=== PATIENT | female | born 1995 | race Caucasian/White ===

== ENCOUNTER 2016-11-13 21:02 | Emergency (ER) | payer OTHER ==
[2016-11-13] MEDS ORDERED: diphenhydrAMINE 50 MG CAP PO STA (21:25)
[2016-11-13] MEDS ORDERED: DOXYCYCLINE 50 MG CAP PO STA (21:29)
--- NOTE | 2016-11-13 21:34 | ED ---
Allergic Reaction HPI - General Chief complaint: Allergic Reaction Stated complaint: allergic reaction to cat Time Seen by Provider: 11/13/16 21:21 Source: patient, family Mode of arrival: ambulatory Limitations: no limitations - History of Present Illness Initial Comments: Patient complains of an ALLERGIC reaction. She was exposed to a cat. She is ALLERGIC to cats. Patient also has a scratch in her right hand. She has no fever, chills, chest pain. She has no belly pain. She has no lightheadedness or dizziness. She has no nausea or vomiting. She has taken no medication for her symptoms. - Related Data Previous Rx's Medication Instructions Recorded Doxycycline Hyclate [Vibramycin] 100 mg PO BID #20 cap 11/13/16 Allergies Allergy/AdvReac Type Severity Reaction Status Date / Time cat dander Allergy Dyspnea Verified 11/13/16 21:22 morphine Allergy Anaphylaxis Verified 11/13/16 21:22 Penicillins Allergy Rash/Hives Verified 11/13/16 21:22 Review of Systems ROS Statement: Those systems with pertinent positive or pertinent negative responses have been documented in the HPI. ROS Other: All systems not noted in ROS Statement are negative. Past Medical History Past Medical History: GERD/Reflux Additional Past Medical History / Comment(s): migraines History of Any Multi-Drug Resistant Organisms: MRSA Date of last positivie culture/infection: 2013 MDRO Source:: left leg Past Surgical History: Adenoidectomy, Tonsillectomy Past Psychological History: No Psychological Hx Reported Smoking Status: Former smoker Past Alcohol Use History: None Reported Past Drug Use History: None Reported General Exam Limitations: no limitations General appearance: alert, in no apparent distress Head exam: Present: atraumatic, normocephalic, normal inspection Eye exam: Present: normal appearance, PERRL, EOMI. Absent: scleral icterus, conjunctival injection, periorbital swelling ENT exam: Present: normal exam, mucous membranes moist Neck exam: Present: normal inspection. Absent: tenderness, meningismus, lymphadenopathy Respiratory exam: Present: normal lung sounds bilaterally. Absent: respiratory distress, wheezes, rales, rhonchi, stridor Cardiovascular Exam: Present: regular rate, normal rhythm, normal heart sounds. Absent: systolic murmur, diastolic murmur, rubs, gallop, clicks GI/Abdominal exam: Present: soft, normal bowel sounds. Absent: distended, tenderness, guarding, rebound, rigid Extremities exam: Present: normal inspection, full ROM, normal capillary refill. Absent: tenderness, pedal edema, joint swelling, calf tenderness Back exam: Present: normal inspection Neurological exam: Present: alert, oriented X3, CN II-XII intact Psychiatric exam: Present: normal affect, normal mood Skin exam: Present: warm, dry, intact, normal color, other (Scratches on the right hand). Absent: rash Course Vital Signs 11/13/16 21:11 Temperature 98 F Pulse Rate 86 Respiratory 20 Rate Blood Pressure 125/75 O2 Sat by Pulse 99 Oximetry Medical Decision Making - Medical Decision Making Patient presents with possible ALLERGIC reaction. I gave her Benadryl by mouth. I gave her 100 mg doxycycline by mouth in the cat scratch. I updated her tetanus immunization. She is feeling better and is stable for discharge. Disposition Clinical Impression: Allergic reaction Disposition: HOME SELF-CARE Condition: Good Instructions: Allergies (ED) Prescriptions: Doxycycline Hyclate [Vibramycin] 100 mg PO BID #20 cap Time of Disposition: 21:33
[2016-11-13 22:35] VITALS: BP 134/74; PULSE 89; RESP 18; TEMP 98.6
== END 2016-11-13 22:35 | disposition home or self-care (01) ==
LOC: EC 21:02
DX: J30.81 Allergic rhinitis due to animal (cat) (dog) hair and dander (principal); S60.511A Abrasion of right hand, initial encounter; X58.XXXA Exposure to other specified factors, initial encounter; Z88.5 Allergy status to narcotic agent; Z88.0 Allergy status to penicillin; Z91.09 Other allergy status, other than to drugs and biological substances; Z86.14 Personal history of Methicillin resistant Staphylococcus aureus infection; Z87.891 Personal history of nicotine dependence
CPT/HCPCS: 99283

== ENCOUNTER 2018-07-14 22:51 | Emergency (ER) | payer OTHER ==
[2018-07-14] MEDS ORDERED: KETOROLAC 30 MG/ML 1 ML VIAL IVP STA (23:34)
[2018-07-14] MEDS ORDERED: ONDANSETRON 4 MG/2 ML VIAL IVP STA (23:34)
[2018-07-14] MEDS ORDERED: SODIUM CHLORIDE 0.9% 1,000 ML IV STA (23:34)
--- NOTE | 2018-07-14 23:36 | ED ---
Abdominal Pain HPI - General Chief Complaint: Abdominal Pain Stated Complaint: Abdominal Pain Time Seen by Provider: 07/14/18 23:23 Source: patient, RN notes reviewed Mode of arrival: ambulatory Limitations: no limitations - History of Present Illness Initial Comments: This is a 22-year-old female who presents to the emergency department with chief complaint of abdominal and right flank pain. Patient reports acute onset of right upper quadrant abdominal pain yesterday. She states that she gave the pain is now in her right flank. She states that the pain is throbbing and sharp. She states that intensity increases in waves. She states that prior to arrival she began having nausea and vomiting. Reports chills. Denies fevers. Denies diarrhea. Denies dysuria, hematuria or increased urinary frequency. States the only medication she takes are for ALLERGIES and oral control. - Related Data Home Medications Medication Instructions Recorded Confirmed Loratadine [Claritin] 10 mg PO DAILY PRN 07/14/18 07/14/18 Previfem 1 tab PO DAILY 07/14/18 07/14/18 Previous Rx's Medication Instructions Recorded Levofloxacin [Levaquin] 750 mg PO DAILY 7 Days #7 tab 07/15/18 Allergies Allergy/AdvReac Type Severity Reaction Status Date / Time cat dander Allergy Dyspnea Verified 07/14/18 23:32 morphine Allergy Anaphylaxis Verified 07/14/18 23:32 Penicillins Allergy Rash/Hives Verified 07/14/18 23:32 Review of Systems ROS Statement: Those systems with pertinent positive or pertinent negative responses have been documented in the HPI. ROS Other: All systems not noted in ROS Statement are negative. Past Medical History Past Medical History: GERD/Reflux Additional Past Medical History / Comment(s): migraines History of Any Multi-Drug Resistant Organisms: MRSA Date of last positivie culture/infection: 2013 MDRO Source:: left leg Past Surgical History: Adenoidectomy, Tonsillectomy Past Psychological History: No Psychological Hx Reported Smoking Status: Former smoker Past Alcohol Use History: None Reported Past Drug Use History: None Reported General Exam - General Exam Comments Initial Comments: General: Awake and alert, well-developed; in mild distress due to pain. HEENT: Head atraumatic, normocephalic. Pupils are equal, round and reactive to light. Extraocular movements intact. Oropharynx moist without erythema or exudate. Neck: Supple. Normal ROM. Cardiovascular: Regular rate and rhythm. No murmurs, rubs or gallops. Chest symmetrical. Respiratory: Lungs clear to auscultation bilaterally. No wheezes, rales or rhonchi. Normal respiratory effort with no use of accessory muscles. Abdomen: Soft, non-tender, non-distended. No rigidity, rebound or guarding. Normal bowel sounds in all 4 quadrants. Right CVA tenderness. Musculoskeletal: Normal ROM, no tenderness bilateral upper and lower extremities. Ambulating normally. Skin: [place], warm and dry without rashes or lesions. Neurological: Alert and oriented x3. CN II-XII grossly intact. Speech is fluent and answers are appropriate. No focal neuro deficits. Psychiatric: Normal mood and affect. No overt signs of depression or anxiety noted. Limitations: no limitations Course Vital Signs 07/14/18 23:15 Temperature 99.2 F Pulse Rate 101 H Respiratory 20 Rate Blood Pressure 143/87 O2 Sat by Pulse 96 Oximetry Medical Decision Making - Medical Decision Making This is a 22-year-old female who presents to the emergency department with chief complaint of right flank pain. Patient also reports chills, nausea and vomiting. On physical examination, there is right CVA tenderness. Abdomen is soft and non-tender. CBC does reveal a slightly elevated white count at 13.2 with a left shift. CMP reveals normal kidney function. UA is positive for infection with positive nitrites, bacteria, leukocyte esterase and white blood cells. Patient is tolerating oral intake. She is eating crackers and peanut butter as well as drinking water. Patient given a dose of Rocephin here in the emergency department for treatment of pyelonephritis. She will be discharged home with a prescription for Levaquin and will be provided with a starter pack for Zofran. Instructed patient to make sure she urinates after sexual intercourse and to finish the antibiotic fully. Vitals are stable and patient is in no acute distress. She will be discharged with this time. She is in agreement with plan and voices understanding. All questions were answered. - Lab Data Result diagrams: 07/14/18 23:52 07/14/18 23:52 Lab Results 07/14/18 07/14/18 07/14/18 Range/Units 23:45 23:45 23:52 WBC (3.8-10.6) k/uL RBC (3.80-5.40) m/uL Hgb (11.4-16.0) gm/dL Hct (34.0-46.0) % MCV (80.0-100.0) fL MCH (25.0-35.0) pg MCHC (31.0-37.0) g/dL RDW (11.5-15.5) % Plt Count (150-450) k/uL Neutrophils % % Lymphocytes % % Monocytes % % Eosinophils % % Basophils % % Neutrophils # (1.3-7.7) k/uL Lymphocytes # (1.0-4.8) k/uL Monocytes # (0-1.0) k/uL Eosinophils # (0-0.7) k/uL Basophils # (0-0.2) k/uL Sodium 140 (137-145) mmol/L Potassium 4.7 (3.5-5.1) mmol/L Chloride 102 (98-107) mmol/L Carbon Dioxide 26 (22-30) mmol/L Anion Gap 12 mmol/L BUN 14 (7-17) mg/dL Creatinine 0.82 (0.52-1.04) mg/dL Est GFR (CKD-EPI)AfAm >90 (>60 ml/min/1.73 sqM) Est GFR (CKD-EPI)NonAf >90 (>60 ml/min/1.73 sqM) Glucose 107 H (74-99) mg/dL Calcium 10.3 H (8.4-10.2) mg/dL Total Bilirubin 0.3 (0.2-1.3) mg/dL AST 29 (14-36) U/L ALT 38 (9-52) U/L Alkaline Phosphatase 84 (38-126) U/L Total Protein 8.3 H (6.3-8.2) g/dL Albumin 4.5 (3.5-5.0) g/dL Amylase 61 (30-110) U/L Lipase 60 (23-300) U/L Urine Color Yellow Urine Appearance Cloudy H (Clear) Urine pH 6.0 (5.0-8.0) Ur Specific [place] 1.023 (1.001-1.035) Urine Protein 2+ H (Negative) Urine Glucose (UA) Negative (Negative) Urine Ketones Negative (Negative) Urine Blood Trace H (Negative) Urine Nitrite Positive H (Negative) Urine Bilirubin Negative (Negative) Urine Urobilinogen 2.0 (<2.0) mg/dL Ur Leukocyte Esterase Large H (Negative) Urine RBC 6 H (0-5) /hpf Urine WBC 170 H (0-5) /hpf Ur Squamous Epith Cells 2 (0-4) /hpf Urine Bacteria Few H (None) /hpf Urine Mucus Few H (None) /hpf Urine HCG, Qual Not Detected (Not Detectd) 07/14/18 Range/Units 23:52 WBC 13.2 H (3.8-10.6) k/uL RBC 4.80 (3.80-5.40) m/uL Hgb 13.9 (11.4-16.0) gm/dL Hct 40.8 (34.0-46.0) % MCV 85.0 (80.0-100.0) fL MCH 29.0 (25.0-35.0) pg MCHC 34.1 (31.0-37.0) g/dL RDW 13.6 (11.5-15.5) % Plt Count 268 (150-450) k/uL Neutrophils % 67 % Lymphocytes % 20 % Monocytes % 4 % Eosinophils % 7 % Basophils % 1 % Neutrophils # 8.9 H (1.3-7.7) k/uL Lymphocytes # 2.7 (1.0-4.8) k/uL Monocytes # 0.6 (0-1.0) k/uL Eosinophils # 0.9 H (0-0.7) k/uL Basophils # 0.1 (0-0.2) k/uL Sodium (137-145) mmol/L Potassium (3.5-5.1) mmol/L Chloride (98-107) mmol/L Carbon Dioxide (22-30) mmol/L Anion Gap mmol/L BUN (7-17) mg/dL Creatinine (0.52-1.04) mg/dL Est GFR (CKD-EPI)AfAm (>60 ml/min/1.73 sqM) Est GFR (CKD-EPI)NonAf (>60 ml/min/1.73 sqM) Glucose (74-99) mg/dL Calcium (8.4-10.2) mg/dL Total Bilirubin (0.2-1.3) mg/dL AST (14-36) U/L ALT (9-52) U/L Alkaline Phosphatase (38-126) U/L Total Protein (6.3-8.2) g/dL Albumin (3.5-5.0) g/dL Amylase (30-110) U/L Lipase (23-300) U/L Urine Color Urine Appearance (Clear) Urine pH (5.0-8.0) Ur Specific [place] (1.001-1.035) Urine Protein (Negative) Urine Glucose (UA) (Negative) Urine Ketones (Negative) Urine Blood (Negative) Urine Nitrite (Negative) Urine Bilirubin (Negative) Urine Urobilinogen (<2.0) mg/dL Ur Leukocyte Esterase (Negative) Urine RBC (0-5) /hpf Urine WBC (0-5) /hpf Ur Squamous Epith Cells (0-4) /hpf Urine Bacteria (None) /hpf Urine Mucus (None) /hpf Urine HCG, Qual (Not Detectd) Disposition Clinical Impression: Pyelonephritis Disposition: HOME SELF-CARE Condition: Good Instructions: Urinary Tract Infection in Women (ED), Kidney Infection (ED), Ondansetron (By mouth) Additional Instructions: Please take medications as prescribed. Please follow up with primary care provider within 1-2 days. Return to emergency department if symptoms should worsen or any concerns arise. Prescriptions: Levofloxacin [Levaquin] 750 mg PO DAILY 7 Days #7 tab Is patient prescribed a controlled substance at d/c from ED?: No Referrals: Leanne Villanueva MD [Primary Care Provider] - 1-2 days Time of Disposition: 00:49
[2018-07-15 00:10] LABS: Basophils # (A) 0.1 k/uL (0-0.2); Basophils % (A) 1 %; Eosinophils # (A) 0.9 k/uL (0-0.7); Eosinophils % (A) 7 %; HCT 40.8 % (34.0-46.0); HGB 13.9 gm/dL (11.4-16.0); Lymphocytes # (A) 2.7 k/uL (1.0-4.8); Lymphocytes % (A) 20 %; MCHC 34.1 g/dL (31.0-37.0); Mean Platelet Volume 7.2; Monocytes # (A) 0.6 k/uL (0-1.0); Monocytes % (A) 4 %; Neutrophils # (A) 8.9 k/uL (1.3-7.7); Neutrophils % (A) 67 %; Platelet Count 268 k/uL (150-450); RDW 13.6 % (11.5-15.5); WBC 13.2 k/uL (3.8-10.6)
[2018-07-15 00:15] LABS: Appearance,Urine Cloudy (Clear); Bacteria,Urine Few /hpf; Bilirubin,Urine Negative (Negative); Blood,Urine Trace (Negative); Color,Urine Yellow; Glucose,Urine (UA) Negative (Negative); Ketones,Urine Negative (Negative); Leukocyte Esterase,Urine Large (Negative); Mucus,Urine Few /hpf; Nitrite,Urine Positive (Negative); Protein,Urine 2+ (Negative); RBC,Urine 6 /hpf (0-5); Specific Gravity,Urine 1.023 (1.001-1.035); Squamous Epithelial Cell,Urine 2 /hpf (0-4); WBC,Urine 170 /hpf (0-5)
[2018-07-15 00:34] LABS: ALT 38 U/L (9-52); AST 29 U/L (14-36); Albumin 4.5 g/dL (3.5-5.0); Alkaline Phosphatase 84 U/L (38-126); Amylase 61 U/L (30-110); Anion Gap 12 mmol/L; Blood Urea Nitrogen 14 mg/dL (7-17); Calcium 10.3 mg/dL (8.4-10.2); Carbon Dioxide 26 mmol/L (22-30); Chloride 102 mmol/L (98-107); Glucose 107 mg/dL (74-99); Lipase 60 U/L (23-300); Potassium 4.7 mmol/L (3.5-5.1); Sodium 140 mmol/L (137-145); Total Bilirubin 0.3 mg/dL (0.2-1.3); Total Protein 8.3 g/dL (6.3-8.2)
--- NOTE | 2018-07-15 00:39 | XR ---
EXAMINATION TYPE: XR KUB DATE OF EXAM: 07/15/2018 COMPARISON: NONE HISTORY: Flank pain TECHNIQUE: 2 views upright FINDINGS: Bowel gas pattern is normal. There is no sign of intestinal obstruction or pneumoperitoneum . Fecal pattern is normal. There is no evidence of a mass. There are no pathologic calcifications ove r the kidneys. Bony structures are intact. Lung bases are clear. IMPRESSION: Nonacute abdomen.
[2018-07-15] MEDS ORDERED: ONDANSETRON 4 MG ODT STARTER PACK 2 TAB BTL PO STA (00:48)
[2018-07-15 01:25] VITALS: BP 115/80; PULSE 69; RESP 18; TEMP 97.9
== END 2018-07-15 01:25 | disposition home or self-care (01) ==
LOC: EC 22:51
DX: N12 Tubulo-interstitial nephritis, not specified as acute or chronic (principal); Z86.14 Personal history of Methicillin resistant Staphylococcus aureus infection; Z87.891 Personal history of nicotine dependence; Z79.3 Long term (current) use of hormonal contraceptives; Z88.0 Allergy status to penicillin; Z88.5 Allergy status to narcotic agent; Z91.09 Other allergy status, other than to drugs and biological substances
CPT/HCPCS: 36415; 80053; 82150; 83690; 85025; 81001; 81025; 74018; 99284; 96365; 96375 ×2; 96361; J2405; J0696; J1885; S0119

== ENCOUNTER → 2019-10-06 | Day surgery (SDC) | payer OTHER ==
[2019-10-04 09:07] VITALS: BMI 30.5
[~2019-10-06] MED LIST: SODIUM CHLORIDE 0.9% 1,000 ML IV SCH
[2019-10-06 08:48] VITALS: BP 119/71; PULSE 82; RESP 16; TEMP 98.4
--- NOTE | 2019-10-06 18:03 | P.PCN ---
Preoperative Diagnosis: Diagnosis Recurrent syncope and presyncope Twelve-lead ECG shows sinus mechanism normal MI narrow QRS normal ST segments Tilt table test protocol Baseline blood pressure 100 906 2 mmHg Baseline heart rate 84 beats a minute with palpation was tilted upright at an angle of 70 per protocol Within 6 minutes the patient experiences sudden drop in blood pressure to 55 mmHg. This is preceded by sinus tachycardia per 116 beats a minute She became presyncopal and when she was laid flat her blood pressure normalized and heart rate normalized Impression Patient with recurrent presyncope Neurocardiogenic response to upright tilting Normal twelve-lead ECG
== END ==
LOC: CATHEP 08:20
PROVIDERS: ATTEND Internal Medicine Clinical Cardiac Electrophysiology
DX: R55 Syncope and collapse (principal); R42 Dizziness and giddiness; R00.2 Palpitations; E03.9 Hypothyroidism, unspecified; Z88.0 Allergy status to penicillin; Z88.5 Allergy status to narcotic agent; Z79.3 Long term (current) use of hormonal contraceptives; Z79.890 Hormone replacement therapy; Z79.899 Other long term (current) drug therapy; Z72.0 Tobacco use
CPT/HCPCS: 81025; 93660

== ENCOUNTER 2020-03-23 09:58 | Emergency (ER) | payer OTHER ==
[2020-03-23 10:06] VITALS: BP 131/84; PULSE 93; RESP 18; TEMP 98.1
--- NOTE | 2020-03-23 10:32 | ED ---
ENT HPI - General Chief complaint: ENT Stated complaint: ear problem Time Seen by Provider: 03/23/20 10:08 Source: patient, RN notes reviewed, old records reviewed Mode of arrival: ambulatory Limitations: no limitations - History of Present Illness Initial comments: Patient is a 24-year-old female who presents emergency Department today with complaints of a piece of hair within the right ear canal. She reports that she has had this for months after she cut her hair. She called her PCP to get down they would not help her and sent her here. Patient denies any drainage or swelling in the ear. He tried to flush it and get it out with Q-tips was unsuccessful. - Related Data Home Medications Medication Instructions Recorded Confirmed Loratadine [Claritin] 10 mg PO DAILY PRN 07/14/18 10/06/19 Levothyroxine Sodium [Synthroid] 25 mcg PO DAILY 10/04/19 10/06/19 Medroxyprogesterone Acetate 150 mg IM Q90D 10/04/19 10/06/19 [Depo-Provera] Previous Rx's Medication Instructions Recorded Ofloxacin 0.3% Ophth Soln [Ocuflox 5 drops RIGHT EAR BID #1 bottle 03/23/20 Ophth Soln] Allergies Allergy/AdvReac Type Severity Reaction Status Date / Time cat dander Allergy Dyspnea Verified 03/23/20 10:06 Egg Derived Allergy "passes Verified 03/23/20 10:06 out" morphine Allergy Anaphylaxis Verified 03/23/20 10:06 Penicillins Allergy Rash/Hives Verified 03/23/20 10:06 Review of Systems ROS Statement: Those systems with pertinent positive or pertinent negative responses have been documented in the HPI. ROS Other: All systems not noted in ROS Statement are negative. Past Medical History Past Medical History: GERD/Reflux Additional Past Medical History / Comment(s): migraines. "fast heart rate" History of Any Multi-Drug Resistant Organisms: MRSA Date of last positivie culture/infection: 2013 MDRO Source:: left leg Past Surgical History: Adenoidectomy, Tonsillectomy Past Anesthesia/Blood Transfusion Reactions: No Reported Reaction Past Psychological History: No Psychological Hx Reported Smoking Status: Former smoker Past Alcohol Use History: None Reported Past Drug Use History: None Reported - Past Family History Mother Family Medical History: No Reported History General Exam - General Exam Comments Initial Comments: 24-year-old female. Alert and oriented. No distress. Limitations: no limitations General appearance: alert, in no apparent distress Head exam: Present: atraumatic, normocephalic, normal inspection Eye exam: Present: normal appearance, PERRL, EOMI. Absent: scleral icterus, conjunctival injection, periorbital swelling ENT exam: Present: normal exam, mucous membranes moist, other (Patient has evidence of a dark coarse hair within the right ear canal.) Neck exam: Present: normal inspection. Absent: tenderness, meningismus, lymphadenopathy Respiratory exam: Present: normal lung sounds bilaterally Cardiovascular Exam: Present: regular rate, normal rhythm, normal heart sounds. Absent: systolic murmur, diastolic murmur, rubs, gallop, clicks GI/Abdominal exam: Present: soft, normal bowel sounds. Absent: distended, tenderness, guarding, rebound, rigid Extremities exam: Present: normal inspection, full ROM, normal capillary refill. Absent: tenderness, pedal edema, joint swelling, calf tenderness Back exam: Present: normal inspection Neurological exam: Present: alert, oriented X3, CN II-XII intact Psychiatric exam: Present: normal affect, normal mood Skin exam: Present: warm, dry, intact, normal color. Absent: rash Course Vital Signs 03/23/20 10:04 Temperature 98.1 F Pulse Rate 93 Respiratory 18 Rate Blood Pressure 131/84 O2 Sat by Pulse 98 Oximetry Procedures - Foreign Body Removal Ear Location: ear canal (R) Foreign Body Suspected: other (Hair) Foreign Body Removed: yes Foreign Body Removal Technique: forceps Tympanic Membrane Intact: Yes Patient Tolerated Procedure: well, no complications Medical Decision Making - Medical Decision Making 24-year-old female presents emergency department today with chief complaint of a hair within the right ear canal. The ear was flushed with saline and the hair was removed with forceps. Patient tolerated the procedure well. She did have some irritation on the ear canal Patient was started on antibiotic drops. I discussed appropriate follow-up with PCP. - Radiology Data Radiology results: report reviewed Disposition Clinical Impression: Acute foreign body of ear canal Disposition: HOME SELF-CARE Condition: Good Instructions (If sedation given, give patient instructions): Ear Foreign Body (ED) Additional Instructions: Please use medication as discussed. Please follow up with family doctor if symptoms have not improved over the next two days. Please return to the emergency room if your symptoms increase or worsen or for any other concerns. Prescriptions: Ofloxacin 0.3% Ophth Soln [Ocuflox Ophth Soln] 5 drops RIGHT EAR BID #1 bottle Is patient prescribed a controlled substance at d/c from ED?: No Referrals: Leanne Villanueva MD [Primary Care Provider] - 1-2 days Time of Disposition: 10:25
== END 2020-03-23 10:40 | disposition home or self-care (01) ==
LOC: EC 09:58
DX: T16.1XXA Foreign body in right ear, initial encounter (principal); Z91.048 Other nonmedicinal substance allergy status; Z91.012 Allergy to eggs; Z88.0 Allergy status to penicillin; Z88.5 Allergy status to narcotic agent; Z79.3 Long term (current) use of hormonal contraceptives; Z86.14 Personal history of Methicillin resistant Staphylococcus aureus infection; Z87.891 Personal history of nicotine dependence; W45.8XXA Other foreign body or object entering through skin, initial encounter
CPT/HCPCS: 69200; 99283

== ENCOUNTER 2020-07-08 11:43 | Emergency (ER) | payer OTHER ==
[2020-07-08 11:50] VITALS: BP 141/82; PULSE 84; RESP 16; TEMP 97.9
--- NOTE | 2020-07-08 12:45 | ED ---
General Adult HPI - General Chief complaint: Extremity Injury, Lower Stated complaint: foot injury Time Seen by Provider: 07/08/20 11:52 Source: patient, RN notes reviewed Mode of arrival: ambulatory Limitations: no limitations - History of Present Illness Initial comments: 24-year-old female presents to the emergency room for right foot pain. Patient reports she has had right foot pain for the past 2 months. States it is on the bottom lateral aspect of her foot. She does not remember injuring this. She states she has not seen her doctor for this. She denies any radiating pain. Denies any numbness or tingling in her toes. Patient has no other complaints at this time including shortness of breath, chest pain, abdominal pain, nausea or vomiting, headache, or visual changes. - Related Data Home Medications Medication Instructions Recorded Confirmed Loratadine [Claritin] 10 mg PO DAILY PRN 07/14/18 10/06/19 Levothyroxine Sodium [Synthroid] 25 mcg PO DAILY 10/04/19 10/06/19 Medroxyprogesterone Acetate 150 mg IM Q90D 10/04/19 10/06/19 [Depo-Provera] Previous Rx's Medication Instructions Recorded Ofloxacin 0.3% Ophth Soln [Ocuflox 5 drops RIGHT EAR BID #1 bottle 03/23/20 Ophth Soln] Allergies Allergy/AdvReac Type Severity Reaction Status Date / Time cat dander Allergy Dyspnea Verified 07/08/20 11:50 Egg Derived Allergy "passes Verified 07/08/20 11:50 out" morphine Allergy Anaphylaxis Verified 07/08/20 11:50 Penicillins Allergy Rash/Hives Verified 07/08/20 11:50 Review of Systems ROS Statement: Those systems with pertinent positive or pertinent negative responses have been documented in the HPI. ROS Other: All systems not noted in ROS Statement are negative. Past Medical History Past Medical History: GERD/Reflux Additional Past Medical History / Comment(s): migraines. "fast heart rate" History of Any Multi-Drug Resistant Organisms: MRSA Date of last positivie culture/infection: 2013 MDRO Source:: left leg Past Surgical History: Adenoidectomy, Tonsillectomy Past Anesthesia/Blood Transfusion Reactions: No Reported Reaction Past Psychological History: No Psychological Hx Reported Smoking Status: Never smoker Past Alcohol Use History: None Reported Past Drug Use History: None Reported - Past Family History Mother Family Medical History: No Reported History General Exam Limitations: no limitations General appearance: alert, in no apparent distress Head exam: Present: atraumatic, normocephalic, normal inspection Eye exam: Present: normal appearance, PERRL, EOMI. Absent: scleral icterus, conjunctival injection, periorbital swelling ENT exam: Present: normal exam, mucous membranes moist Neck exam: Present: normal inspection, full ROM. Absent: tenderness, meningismus, lymphadenopathy Respiratory exam: Present: normal lung sounds bilaterally. Absent: respiratory distress, wheezes, rales, rhonchi, stridor Cardiovascular Exam: Present: regular rate, normal rhythm, normal heart sounds. Absent: systolic murmur, diastolic murmur, rubs, gallop, clicks Extremities exam: Present: other (Patient has tenderness to the lateral plantar aspect of the right foot. No heel tenderness. No dorsal foot tenderness. Capillary refill is less than 2 seconds, DP pulses 2+. No obvious signs of trauma. No erythema, edema, or evidence of infection.) Course Vital Signs 07/08/20 11:48 Temperature 97.9 F Pulse Rate 84 Respiratory 16 Rate Blood Pressure 141/82 O2 Sat by Pulse 97 Oximetry Medical Decision Making - Medical Decision Making X-ray of the right foot is negative. At this time patient was referred to orthopedics as this has been an ongoing issue for 2 months. In the meantime I did recommend massage at the fascia on the bottom of the foot with a tennis ball and taking anti-inflammatories. I recommend she return to she has any worsening symptoms. Disposition Clinical Impression: Foot pain, right Disposition: HOME SELF-CARE Condition: Good Instructions (If sedation given, give patient instructions): Arthralgia (ED) Additional Instructions: Please take Motrin and Tylenol for pain. Follow-up with orthopedics. Call on Thursday for next appointment. Return to the emergency room for any worsening symptoms. Is patient prescribed a controlled substance at d/c from ED?: No Referrals: Leanne Villanueva MD [Primary Care Provider] - 1-2 days Time of Disposition: 12:51
--- NOTE | 2020-07-08 12:47 | XR ---
EXAMINATION TYPE: XR foot complete RT DATE OF EXAM: 07/08/2020 CLINICAL HISTORY: Right foot pain for 2 months. TECHNIQUE: Frontal, lateral, and oblique images of the right foot are obtained. COMPARISON: None FINDINGS: There is no acute fracture/dislocation evident in the right foot. The joint spaces in the right foot appear within normal limits. The overlying soft tissue appears unremarkable. IMPRESSION: Grossly unremarkable radiographs.
== END 2020-07-08 13:01 | disposition home or self-care (01) ==
LOC: EC 11:43
DX: M79.671 Pain in right foot (principal); Z79.890 Hormone replacement therapy; Z79.3 Long term (current) use of hormonal contraceptives; Z91.09 Other allergy status, other than to drugs and biological substances; Z88.5 Allergy status to narcotic agent; Z88.0 Allergy status to penicillin; Z91.012 Allergy to eggs
CPT/HCPCS: 99283

== ENCOUNTER → 2021-02-08 | Outpatient (CLI) | payer OTHER ==
[2021-02-08 19:48] LABS: T4, Free (Free Thyroxine) 0.7 ng/dL (0.80-1.80)
[2021-02-08 20:53] LABS: HCT 43.2 % (37.2-46.3); HGB 14.2 g/dL (12.0-15.0); MCH 28.1 pg (27.0-32.0); MCHC 32.9 g/dL (32.0-37.0); MCV 85.4 fL (80.0-97.0); Mean Platelet Volume 10.6 fL (9.5-12.2); Platelet Count 279 X 10*3/uL (140-440); RBC 5.06 X 10*6/uL (4.10-5.20); RDW 14.7 % (11.5-14.5); WBC 9.41 X 10*3/uL (4.50-10.00)
== END | disposition home or self-care (01) ==
LOC: LABWHC1 13:55
PROVIDERS: ATTEND Internal Medicine
DX: U07.1 COVID-19 (principal)
CPT/HCPCS: 36415; 84439; 84443; 85027; 86769